=== PATIENT | female | born 1945 | race Caucasian/White ===

== ENCOUNTER 2021-02-21 09:11 | Inpatient (IN) | payer MEDICARE, OTHER ==
[2021-02-21] MEDS ORDERED: Ketorolac Tromethamine 15 MG/ML VIAL ONE (09:39)
[2021-02-21 10:34] LABS: #Eosinphils 0.2 10x3/uL (0.0-0.5); #Monocytes 0.6 10x3/uL (0.0-1.1); #Neutrophils 3.9 10x3/uL (1.5-8.4); %Basophils 0.6 % (0.0-2.0); %Eosinophils 2.3 % (0.0-6.0); %Lymphocytes 26.9 % (18.0-47.0); %Monocytes 8.9 % (0.0-10.0); %Neutrophils 60.7 % (40.0-75.0); Hemoglobin 12.4 g/dL (12.0-15.5); Mean Corpuscular HGB CONC 32.8 g/dL (32.0-36.0); Mean Corpuscular Hemoglobin 28.8 pg (27.0-33.0); Mean Corpuscular Volume 87.7 fl (81.6-98.3); Mean Platelet Volume 9.3 fl (7.4-10.4); Platelet Count 249 10x3/uL (150-450); Red Blood Cell (RBC) Count 4.31 10x6/uL (3.90-5.03); White Blood Cell (WBC) Count 6.4 10x3/uL (3.5-10.5)
[2021-02-21] MEDS ORDERED: CEFAZOLIN 2 GM in Premix Bag 1 BAG IVPB SCH (10:45)
[2021-02-21 10:48] LABS: ALT (SGPT) 16 U/L (8-55); AST (SGOT) 16 U/L (5-34); Alkaline Phosphatase 79 U/L (40-110); Anion Gap 13 mmol/L (10-20); BUN (Urea Nitrogen) 14 mg/dL (9.8-20.1); Bilirubin, Total 0.3 mg/dL (0.2-1.2); Calc. Creatinine Clearance 0 mL/min (70-130); Carbon Dioxide 25 mmol/L (23-31); Chloride 110 mmol/L (98-107); Globulin 2.5 g/dL (2.4-3.5); Glucose 95 mg/dL (83-110); Potassium 4.4 mmol/L (3.5-5.1); Protein, Total 6.5 g/dL (5.8-8.1); Sodium 144 mmol/L (136-145)
[2021-02-21] MEDS ORDERED: Ondansetron PF 4 MG/2 ML Vial IVP PRN (11:40)
[2021-02-21] MEDS ORDERED: Ondansetron ODT 4 MG TAB PO PRN (11:40)
[2021-02-21 12:24] LABS: SARS-CoV-2 NAA Rapid Test Not Detected (NotDetected)
[2021-02-21 12:36] VITALS: BMI 20.1
[2021-02-21] MEDS: Ketorolac Tromethamine 30 MG/ML VIAL IVP PRN (13:20)
[2021-02-21] MEDS ORDERED: Dexamethasone 20 MG/5 ML VIAL ONE (15:02)
[2021-02-21] MEDS ORDERED: Fentanyl 100 MCG/2 ML VIAL ONE (15:02)
[2021-02-21] MEDS ORDERED: Lidocaine 1% PF 5 ML VIAL ONE ×2 (15:02→17:02)
[2021-02-21] MEDS ORDERED: Ondansetron PF 4 MG/2 ML Vial ONE (15:02)
[2021-02-21] MEDS ORDERED: PROPOFOL 20 ML ONE (15:02)
[2021-02-21] MEDS ORDERED: Rocuronium Bromide 10 MG/ML (10ML VIAL) ONE (15:03)
[2021-02-21] MEDS ORDERED: EPINEPHrine 1 MG/ML AMP ONE (15:31)
[2021-02-21] MEDS ORDERED: Bupivacaine PF 0.5% 30 ML VIAL ONE (15:31)
[2021-02-21] MEDS ORDERED: Tranexamic Acid 1,000 MG/10 ML VIAL ONE (15:32)
[2021-02-21] MEDS ORDERED: Neomycin-Polymyxin 1 ML AMP ONE (15:32)
[2021-02-21] MEDS ORDERED: PHENYLEPHRINE-NS 100 MCG/ML 10 ML SYRINGE ONE (16:44)
[2021-02-21] MEDS ORDERED: Glycopyrrolate 0.2 MG/ML 5 ML SYRINGE ONE (16:50)
[2021-02-21] MEDS ORDERED: Meperidine HCl/PF 25 MG/ML VIAL ONE (16:58)
[2021-02-21] MEDS ORDERED: Bupivacaine HCl 0.5%/Epinephrine 1:200,000/PF 30 ml Vial ONE (17:01)
[2021-02-21] MEDS: CEFAZOLIN 2 GM in Premix Bag 1 BAG IVPB SCH (21:15)
[2021-02-22 04:23] LABS: Anion Gap 13 mmol/L (10-20); BUN (Urea Nitrogen) 11 mg/dL (9.8-20.1); Calc. Creatinine Clearance 67 mL/min (70-130); Calcium 8.4 mg/dL (7.8-10.44); Carbon Dioxide 26 mmol/L (23-31); Chloride 107 mmol/L (98-107); Glucose 101 mg/dL (83-110); Potassium 4.6 mmol/L (3.5-5.1); Sodium 141 mmol/L (136-145)
[2021-02-22 04:41] LABS: #Monocytes 0.8 10x3/uL (0.0-1.1); #Neutrophils 7.2 10x3/uL (1.5-8.4); %Basophils 0.3 % (0.0-2.0); %Eosinophils 0.1 % (0.0-6.0); %Lymphocytes 27.6 % (18.0-47.0); %Monocytes 7.3 % (0.0-10.0); %Neutrophils 64.4 % (40.0-75.0); Hemoglobin 10.8 g/dL (12.0-15.5); Mean Corpuscular HGB CONC 31.8 g/dL (32.0-36.0); Mean Corpuscular Volume 88.1 fl (81.6-98.3); Mean Platelet Volume 9.2 fl (7.4-10.4); Platelet Count 229 10x3/uL (150-450); RBC Distribution Width 15.2 % (11.5-14.5); Red Blood Cell (RBC) Count 3.86 10x6/uL (3.90-5.03); White Blood Cell (WBC) Count 11.2 10x3/uL (3.5-10.5)
[2021-02-22] MEDS: CEFAZOLIN 2 GM in Premix Bag 1 BAG IVPB SCH (06:15)
[2021-02-22] MEDS: Ketorolac Tromethamine 30 MG/ML VIAL IVP PRN ×2 (11:53→20:48)
[2021-02-23 05:13] LABS: Anion Gap 13 mmol/L (10-20); BUN (Urea Nitrogen) 8 mg/dL (9.8-20.1); Calc. Creatinine Clearance 78 mL/min (70-130); Calcium 8.1 mg/dL (7.8-10.44); Carbon Dioxide 22 mmol/L (23-31); Chloride 106 mmol/L (98-107); Glucose 96 mg/dL (83-110); Potassium 3.7 mmol/L (3.5-5.1); Sodium 137 mmol/L (136-145)
[2021-02-23 05:39] LABS: #Eosinphils 0.1 10x3/uL (0.0-0.5); #Monocytes 1.3 10x3/uL (0.0-1.1); %Basophils 0.3 % (0.0-2.0); %Eosinophils 0.5 % (0.0-6.0); %Lymphocytes 28.8 % (18.0-47.0); %Monocytes 10.6 % (0.0-10.0); %Neutrophils 59.4 % (40.0-75.0); Hemoglobin 11.1 g/dL (12.0-15.5); Mean Corpuscular HGB CONC 32.2 g/dL (32.0-36.0); Mean Corpuscular Hemoglobin 28.5 pg (27.0-33.0); Mean Corpuscular Volume 88.5 fl (81.6-98.3); Mean Platelet Volume 9.3 fl (7.4-10.4); Platelet Count 206 10x3/uL (150-450); RBC Distribution Width 15.3 % (11.5-14.5); White Blood Cell (WBC) Count 11.8 10x3/uL (3.5-10.5)
[2021-02-23] MEDS: Ketorolac Tromethamine 30 MG/ML VIAL IVP PRN ×2 (06:00→12:18)
[2021-02-24] MEDS: Ketorolac Tromethamine 30 MG/ML VIAL IVP PRN ×3 (00:49→17:50)
[2021-02-24] MEDS: Sodium Chloride 0.9% 1,000 ML IV SCH ×2 (10:50→13:20)
[2021-02-25] MEDS: Ketorolac Tromethamine 30 MG/ML VIAL IVP PRN ×2 (08:07→20:48)
[2021-02-25] MEDS ORDERED: Enoxaparin Sodium 40 MG/0.4 ML SYRINGE SC SCH (12:00)
[2021-02-26] MEDS: Ketorolac Tromethamine 30 MG/ML VIAL IVP PRN (08:32)
[2021-02-26] MEDS: Enoxaparin Sodium 40 MG/0.4 ML SYRINGE SC SCH (08:34)
[2021-02-26] MEDS: traMADol HCl 50 MG TAB PO PRN (20:32)
[2021-02-27] MEDS: traMADol HCl 50 MG TAB PO PRN ×2 (08:40→16:05)
[2021-02-27] MEDS: Enoxaparin Sodium 40 MG/0.4 ML SYRINGE SC SCH (08:41)
[2021-02-28] MEDS: Acetaminophen 500 MG TAB PO PRN ×3 (01:30→20:00)
[2021-02-28] MEDS: Enoxaparin Sodium 40 MG/0.4 ML SYRINGE SC SCH (10:06)
[2021-03-01] MEDS: Acetaminophen 500 MG TAB PO PRN (09:37)
[2021-03-01] MEDS: Enoxaparin Sodium 40 MG/0.4 ML SYRINGE SC SCH (09:38)
[2021-03-01 12:19] VITALS: BP 100/61; TEMP 98.4
== END 2021-03-01 13:09 | DRG 522 ==
LOC: CSHERS 09:11 → CSHTELE 10:30
PROVIDERS: ADMIT Internal Medicine; ATTEND Internal Medicine
PROC: 0SRS0JA Replacement of Left Hip Joint, Femoral Surface with Synthetic Substitute, Uncemented, Open Approach (ICD-10-PCS; principal; 2021-02-21)
DX: S72.002A Fracture of unspecified part of neck of left femur, initial encounter for closed fracture (principal); Y92.010 Kitchen of single-family (private) house as the place of occurrence of the external cause; Z20.822 Contact with and (suspected) exposure to COVID-19; G40.909 Epilepsy, unspecified, not intractable, without status epilepticus; W01.0XXA Fall on same level from slipping, tripping and stumbling without subsequent striking against object, initial encounter; M21.371 Foot drop, right foot; N39.41 Urge incontinence; I95.9 Hypotension, unspecified; Z79.890 Hormone replacement therapy; Z79.899 Other long term (current) drug therapy
CPT/HCPCS: 36415; 71045; 72170; 80048; 80053; 84484; 85025; 93005; 96374; C1776; J0171; J0690; J1100; J1650; J1885; J2175; J2405; J2704; J3010; S0020; U0002

== ENCOUNTER 2021-09-16 13:26 | Outpatient (CLI) | payer MEDICARE | END 2021-09-16 13:27 | disposition home or self-care (01) | LOC: CSHMAMMO 13:26 | PROVIDERS: ATTEND Family Medicine | DX: Z12.31 Encounter for screening mammogram for malignant neoplasm of breast (principal) | CPT/HCPCS: 77063; 77067 ==

== ENCOUNTER 2022-10-09 13:14 | Outpatient (CLI) | payer MEDICARE | END 2022-10-09 13:15 | disposition home or self-care (01) | LOC: CSHMAMMO 13:14 | PROVIDERS: ATTEND Family Medicine | DX: Z12.31 Encounter for screening mammogram for malignant neoplasm of breast (principal) | CPT/HCPCS: 77063; 77067 ==

== ENCOUNTER 2024-10-28 10:28 | Outpatient (CLI) | payer MEDICARE | END 2024-10-28 10:29 | disposition home or self-care (01) | LOC: CSHMAMMO 10:28 | PROVIDERS: ATTEND Family Medicine | DX: Z12.31 Encounter for screening mammogram for malignant neoplasm of breast (principal) | CPT/HCPCS: 77063; 77067 ==